=== PATIENT | male | born 1950 | race Caucasian/White ===

== ENCOUNTER 2016-11-15 08:06 | Inpatient (IN) | payer MEDICARE ==
[~2016-11-15] VITALS: Ht 190.5 cm; Wt 90.4 kg
--- NOTE | ~2016-11-15 | HP ---
ADMIT: 11/15/2016 RM/LOC: 431 [facility] MR#: [id number] [address] [facility] [address] [place] [phone] [place] [address] History and Physical SEX: M AGE: 66 : 1950 DATE OF SERVICE: 11/15/2016 CHIEF COMPLAINT: Confusion and fever. HISTORY OF PRESENT ILLNESS: Esteban is a 66-year-old white male , sent here today from the [facility] with fever and confusion. He actually resides in [place] and was sent to the [facility] for rehab from a recent hospitalization in [place] and was planned on going back home to his apartment in [place] today when he developed fever and acute confusion. He was sent here. A subsequent workup has shown a right-sided developing pneumonia. He is subsequently being admitted to the hospital for further management of this. He is not a very good historian. He cannot really articulate why he is even in the ER today [facility] PAST MEDICAL HISTORY: Includes: 1. Bipolar disorder. 2. COPD and emphysema. 3. PTSD. 4. Chronic back pain. 5. Crohn's disease with what sounds like a history of a rectosigmoid abscess and/or fistula around his bladder requiring surgery. 6. Sensorineural hearing loss. 7. Recurrent urinary tract infections. 8. Periodontal disease. 9. History of nicotine dependence. 10.Depression. 11.Hypertension. PAST SURGICAL HISTORY: He reports a previous partial bowel and bladder resection with what sounds like a complication of his Crohn disease. Otherwise, no other significant surgeries. ALLERGIES: 1. CODEINE. 2. MORPHINE. 3. LISINOPRIL. 4. GABAPENTIN. MEDICATIONS: Outpatient medications include: 1. Albuterol 2 puffs every 4 hours as needed. 2. Aspirin 81 mg daily. 3. Cogentin 1.5 mg b.i.d. 4. Vitamin B12, 1000 mcg daily. 5. Docusate senna 8.6/50 two tabs b.i.d. 6. [place] 750 mg at bedtime. 7. Loratadine 10 mg daily. 8. Multivitamin daily. 9. Nicotine lozenge q.2 p.r.n. 10.Omeprazole 20 mg daily. ADMIT: 11/15/2016 RM/LOC: 431 [facility] MR#: [id number] [address] [facility] [address] [place] [phone] ESTEBAN [place] [id number] History and Physical SEX: M AGE: 66 : 1950 11.MiraLax 17 g at bedtime. 12.Potassium chloride 10 mEq b.i.d. 13.Pravastatin 40 mg at bedtime. 14.Prazosin 3 mg at bedtime. 15.Seroquel 150 mg at bedtime. 16.Spiriva 1 capsule inhaled at bedtime. 17.Tylenol 325 mg t.i.d. p.r.n. 18.Lyrica 100 mg b.i.d. SOCIAL HISTORY: He has a 40 year history of smoking. Currently, smoking upwards of two packs per day. He denies any alcohol or recreational drug use. Again, he lives alone in [place] in an apartment and actually was slated to go there on discharge from the [facility] today and if he had not gotten sick. FAMILY HISTORY: Noncontributory. REVIEW OF SYSTEMS: At this time. He notes a little bit of back pain and in the lower part of his neck. Denies any chest pain, shortness of breath, or cough. He has been a little bit chilled. He denies any abdominal pain, nausea, vomiting, or diarrhea. No lower extremity swelling. He denies any choking on food. Remainder of his review of systems as per HPI, all others reviewed are negative. PHYSICAL EXAMINATION: VITAL SIGNS: Blood pressure is 138/45 with a MAP of 65, pulse 116, respirations 21, temp 100.8, O2 saturation is 91% on room air. GENERAL: He is awake, alert, confused. No acute distress. He is disheveled appearing, has a rather unkempt farah. HEENT: Normocephalic and atraumatic. NECK: Supple. No lymphadenopathy. No thyromegaly. HEART: Regular rate and rhythm. No murmurs, gallops, or rubs. LUNGS: Diminished throughout. No rhonchi, rales, or wheezes. ABDOMEN: Obese, soft, nontender, and nondistended. No rebound guarding or masses. He has a midline well-healed laparotomy scar with an additional scar in the right lower quadrant which might be consistent with the previous MARIA FERNANDA drain or ostomy, again difficult to tell. EXTREMITIES: No cyanosis, clubbing, or edema. LABORATORY AND X-RAY DATA: Blood cultures are pending. CBC shows a white count of 10.3, hemoglobin of 12.3, hematocrit 36.6, and a platelet count of 199. INR is unremarkable. Lactic acid mildly elevated at 2.2. CMP remarkable for just a mildly elevated random glucose of 119, phos of 2.4, albumin 3.1. Cardiac enzymes including troponin are negative. Procalcitonin remarkable. [place] level is negative. Chest x-ray shows patchy right lung opacities concerning for developing pneumonia. EKG shows normal sinus rhythm. No hyperacute ST-T wave changes noted. ADMIT: 11/15/2016 RM/LOC: 431 [facility] MR#: [id number] [facility] [address] [id number] [place] [address] History and Physical SEX: M AGE: 66 : 1950 ASSESSMENT AND PLAN: 1. Right-sided pneumonia. 2. Chronic obstructive pulmonary disease. 3. Chronic tobacco abuse. 4. Bipolar disorder. 5. Posttraumatic stress disorder. PLAN: Esteban is going to be admitted to the fourth floor telemetry unit. We are going to start him on IV steroids, nebs, IV Levaquin and IV Zosyn. We will maintain him on TKO IV fluids. Allow him to have a general diet. Further management will be dependent on his clinical course. Finn Black MD/ du JOB #: [id number] CC: Finn Black, Attending Physician [facility] Physician, Family Physician
--- NOTE | 2016-11-16 06:25 | ER ---
ADMIT: 11/15/2016 RM/LOC: 431 [facility] MR#: [id number] 26[address] [facility] [address] [place] [id number] [place] [address] Emergency Room Report SEX: M AGE: 66 : 1950 DATE: 11/15/2016 TIME: 0806 hours. Please refer to my T-sheet for complete H and P. HISTORY OF PRESENT ILLNESS: Briefly, the patient is a 66-year-old who was transferred over from the [facility] for fever and not feeling well. He has a known history of Psychiatric illness. He also has known history of depression, known history of encephalopathy in the past. He currently has been out here, going through recovery from psychosis from his psych history. Apparently, he was getting ready to go home but he developed fever today. He has been little cough and short of breath. He has a history of COPD. PHYSICAL EXAMINATION: VITAL SIGNS: Blood pressure 138/45, pulse 114, respirations 16, temp 100.8, sat 92%. GENERAL: He is no acute distress. HEENT: Grossly normal. LUNGS: Slightly coarse, moving adequate air. No wheezes. ABDOMEN: Soft. SKIN: No rash. NEUR[facility]: [facility] at [facility]. Otherwise, his neuro exam is essentially negative. EMERGENCY DEPARTMENT COURSE: He did sepsis pathway. Chest x-ray revealed a right-sided infiltrate. EKG was sinus rhythm, rate 104, no changes. Lactate is 2.2. His procalcitonin 0.41, lithium 0.71. CBC normal except white count of 10.3, hemoglobin 12.3. Chemistries normal. Coags normal. Cardiac negative. I gave him Decadron 10 IV, 1 g of Tylenol, sent blood cultures. Started Zosyn, Levaquin, and L normal saline bolus. I gave him some Tylenol. I talked to the [place]. They said they were on diversion at this point. I talked to Dr. Black, who will admit to the hospital. ASSESSMENT: 1. Right-sided lobar pneumonia. 2. Fever. 3. Mild confusion secondary to pneumonia. PLAN: Admit to the hospital. Nader Belle MD/ du JOB #: [id number] CC: Finn Black MD, Attending Physician [facility] Physician, Family Physician
[2016-11-18] MEDS ORDERED: COGENTIN DPS1 MG PO (13:11)
[2016-11-18] MEDS ORDERED: CLARITIN DPS10 MG PO (13:11)
[2016-11-18] MEDS ORDERED: ASA CHILDREN'S81 MG PO (13:11)
[2016-11-18] MEDS ORDERED: [UNRECOGNIZED DRUG - OTHER] PO (13:11)
[2016-11-18] MEDS ORDERED: PRAVACHOL80 MG PO (13:12)
[2016-11-18] MEDS ORDERED: [UNRECOGNIZED DRUG - OTHER] PO (13:12)
[2016-11-18] MEDS ORDERED: MINIPRESS DPS1 MG PO (13:12)
[2016-11-18] MEDS ORDERED: MICRO-K DPS10 MEQ PO (13:12)
[2016-11-18] MEDS ORDERED: LYRICA50 MG PO (13:12)
[2016-11-18] MEDS ORDERED: SEROQUEL50 MG PO (13:13)
[2016-11-18] MEDS ORDERED: PROTONIX40 MG PO (13:13)
[2016-11-18] MEDS ORDERED: SPIRIVA18 MCG IH (13:14)
[2016-11-18] MEDS ORDERED: DUONEB DPS3 ML IH (13:14)
[2016-11-18] MEDS ORDERED: VITAMIN B-12500 MCG PO (13:14)
[2016-11-18] MEDS ORDERED: THERAPEUTIC MUL1 TA1 PO (13:14)
[2016-11-18] MEDS ORDERED: TYLENOL DPS325 MG PO (13:15)
[2016-11-18] MEDS ORDERED: NICORELIEF4 MG PO (13:15)
[2016-11-18] MEDS ORDERED: PROAIR RESPICL90 MCG IH (13:27)
[2016-11-18] MEDS ORDERED: SENOKOT S1 TAB PO (13:28)
[2016-11-18] MEDS ORDERED: NICOTINE LOZENGE4 MG PO (13:29)
[2016-11-18] MEDS ORDERED: AMOXICILLIN875 MG PO (13:31)
[2016-11-18] MEDS ORDERED: AZITHROMYCIN500 MG PO (13:32)
--- NOTE | 2016-11-20 08:02 | DS ---
ADMIT: 11/15/2016 RM/LOC: 431 [facility] MR#: [id number] [address] [id number] [place] [address] Discharge Summary SEX: M AGE: 66 : 1950 ADMISSION DATE: 11/15/2016 DISCHARGE DATE: 11/17/2016 ADMITTING DIAGNOSES: 1. Right-sided pneumonia. 2. Chronic obstructive pulmonary disease. 3. Chronic tobacco abuse. 4. Bipolar disorder. 5. Post traumatic stress disorder. 6. Chronic back pain. 7. Crohn's disease with history of rectosigmoid abscess and/or fistula into the bladder. 8. Periodontal disease. 9. Depression. 10.Hypertension. DISCHARGE DIAGNOSES: 1. Right-sided pneumonia. 2. Chronic obstructive pulmonary disease. 3. Chronic tobacco abuse. 4. Bipolar disorder. 5. Post traumatic stress disorder. 6. Chronic back pain. 7. Crohn's disease with history of rectosigmoid abscess and/or fistula into the bladder. 8. Periodontal disease. 9. Depression. 10.Hypertension. PROCEDURES: None. CONSULTATIONS: None. HISTORY AND PHYSICAL EXAM: Esteban is a very pleasant, 66-year-old white male normally seen at the [facility] [place] who was actually residing in the intermediate unit [facility] at the [facility] and was to be discharged to home on [place] on the day of admission, when he was found to be febrile and very confused and was sent to the [facility] Emergency Department. ER workup showed him to have a right-sided pneumonia and early sepsis and he was subsequently admitted to the hospital for further management. HOSPITAL COURSE: Esteban's hospital course was unremarkable. He was started on IV Levaquin and IV Zosyn. He was fluid resuscitated. His mentation cleared very quickly following bringing his fever down and initiation of antibiotics. His vital signs remained stable throughout his hospital admission. He remained afebrile throughout his hospital admission and he did not require any oxygen throughout his hospital admission. He was also started on IV steroids and nebulizer treatments. The steroids only increased his blood sugars. He remained essentially without any wheezing or significant tightness to suggest ADMIT: 11/15/2016 RM/LOC: 431 [facility] MR#: [id number] 26[address] [facility] [address] [place] [id number] ESTEBAN MARINELLI [place] [id number] Discharge Summary SEX: M AGE: 66 : 1950 that his COPD was contributing to any of this and the decision was made to discontinue his steroids at the time of discharge. I had social work consult while he was here and the recommendation at discharge was to have him go back to the [facility] facility so that they could arrange and coordinate his transport back to [place]. Esteban did have a swallow study while he was here due to some right lower lobe pneumonia findings. He passed his swallow study without any difficulty. On the morning of 11/17/2016, he was stable and felt safe for discharge back to the [facility] facility. DISPOSITION: Again discharged back to the [facility] facility. DISCHARGE MEDICATIONS: Discharge medications will include: 1. Albuterol 90 mcg inhaler, two puffs every 4 hours as needed. 2. Cogentin 1.5 mg b.i.d. 3. Aspirin 81 mg daily. 4. Vitamin B12 1000 mcg daily. 5. Senokot-S 2 tabs b.i.d. 6. [place] carbonate 750 mg every night. 7. Claritin 10 mg daily. 8. Multivitamin daily. 9. Nicotine 4 mg lozenge q.2 hours p.r.n. 10.Omeprazole 20 mg daily. 11.MiraLax 17 g every night. 12.Potassium chloride 10 mEq b.i.d. 13.Pravastatin 40 mg every night. 14.Prazosin 3 mg every night. 15.Lyrica 100 mg b.i.d. 16.Seroquel 150 mg every night. 17.Tylenol 325 mg t.i.d. p.r.n. 18.Spiriva 1 puff daily. 19.Augmentin 875 mg p.o. b.i.d. for eight days. 20.Zithromax 500 mg p.o. b.i.d. for eight days. FOLLOWUP: I have recommend that he follow up with his [facility] in 1-2 weeks with chest x-ray prior to ensure that his pneumonia on the right side, again right upper and right lower lobes have cleared. Finn Black MD/ vdg JOB #: [id number] CC: Finn Black MD, Attending Physician [facility] Physician, Family Physician
== END 2016-11-17 10:38 | DRG 871 ==
LOC: ER 08:06 → 4PCU 11:23
PROVIDERS: ADMIT Family Medicine
DX: A41.9 Sepsis, unspecified organism (principal); J18.9 Pneumonia, unspecified organism; G93.40 Encephalopathy, unspecified; J44.0 Chronic obstructive pulmonary disease with (acute) lower respiratory infection; K50.90 Crohn's disease, unspecified, without complications; H90.5 Unspecified sensorineural hearing loss; R65.20 Severe sepsis without septic shock; F31.9 Bipolar disorder, unspecified; M54.2 Cervicalgia; R73.9 Hyperglycemia, unspecified; T38.0X5A Adverse effect of glucocorticoids and synthetic analogues, initial encounter; R30.0 Dysuria; I10 Essential (primary) hypertension; F17.210 Nicotine dependence, cigarettes, uncomplicated; E87.6 Hypokalemia; F43.10 Post-traumatic stress disorder, unspecified; M54.9 Dorsalgia, unspecified; G89.29 Other chronic pain; K05.6 Periodontal disease, unspecified; Z79.82 Long term (current) use of aspirin